=== PATIENT | female | born 1995 | race Caucasian/White ===

== ENCOUNTER 2016-04-17 11:37 | Emergency (ER) | payer OTHER ==
[~2016-04-17] VITALS: Ht 170.2 cm; Wt 90.7 kg
[~2016-04-17 11:37] MED LIST: CIPRO 500MG (E500 MG PO; HYDROXYZINE HCL50 M1 PO; MOTRIN800 MG PO; PENICILLIN VK500 MG PO; PREDNISONE10 M2 PO; PYRIDIUM100 MG PO; SPRINTEC 28 DA1 EACH PO
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
--- NOTE | 2016-04-17 12:54 | RADIOLOGY REPORT ---
EXAMINATION: XR CHEST CLINICAL INFORMATION: Chest pain COMPARISON: None TECHNIQUE: 2 views of the chest were obtained. FINDINGS: No acute finding. Lung aparicio are grossly clear. The heart size is normal. The hilar structures do not appear enlarged. No effusion. IMPRESSION: No acute process.
[2016-04-17] MEDS ORDERED: XANAX0.25 M1 PO (13:29)
[2016-04-17 13:39] VITALS: BP 112/72
== END 2016-04-17 13:45 ==
LOC: ERH 11:37
DX: R07.89 Other chest pain (principal); R00.2 Palpitations
CPT/HCPCS: 93005; 93010